=== PATIENT | female | born 1995 | race Caucasian/White ===

== ENCOUNTER 2017-06-19 18:41 | Emergency (ER) | payer OTHER ==
[2017-06-19 19:38] LABS: BASOPHIL % 0.2 % (0-2); PLATELET COUNT 185 x10^3mcL (130-400); RED CELL DISTRIBUTION WIDTH 12.6 % (11.5-14.5)
[2017-06-19 19:47] LABS: CALCIUM 9.3 mg/dL (8.5-10.1); CARBON DIOXIDE 32.1 mmol/L (21-32); CHLORIDE SERUM 104 mmol/L (98-107); CREATININE SERUM 0.7 mg/dL (0.6-1.0); GFR1 > 60 mL/min; GLUCOSE SERUM 123 mg/dL (74-106); POTASSIUM SERUM 4.2 mmol/L (3.5-5.1); SODIUM SERUM 141 mmol/L (136-145)
[2017-06-19 19:59] LABS: AMPHETAMINE QUAL UR NONE DETECTED (NEG <=1000)
[2017-06-19 20:02] LABS: ALBUMIN 4.4 g/dL (3.4-5.0); ALKALINE PHOSPHATASE 54 U/L (46-116); ALT/SGPT 17 U/L (14-59); AST/SGOT 17 U/L (15-37); BILIRUBIN TOTAL 1.93 mg/dL (0.20-1.00); T4(THYROXINE) 9.8 ug/dL (4.7-13.3); TOTAL PROTEIN, SERUM 7.9 g/dL (6.4-8.2)
[2017-06-19 20:48] VITALS: BP 103/65
== END 2017-06-19 20:48 | disposition home or self-care (01) ==
LOC: ED 18:41
PROVIDERS: Emergency Medicine
DX: R55 Syncope and collapse (principal); R01.1 Cardiac murmur, unspecified; F41.9 Anxiety disorder, unspecified; K21.9 Gastro-esophageal reflux disease without esophagitis
CPT/HCPCS: 36415; 83880

== ENCOUNTER 2017-09-22 00:03 | Emergency (ER) | payer OTHER ==
[~2017-09-22] VITALS: Ht 167.6 cm; Wt 46.7 kg
[2017-09-22 00:25] VITALS: BP 121/72; Ht 167.6 cm; Wt 46.7 kg
== END 2017-09-22 00:58 | disposition left against medical advice (07) ==
LOC: ED 00:03
DX: Z53.21 Procedure and treatment not carried out due to patient leaving prior to being seen by health care provider (principal)

== ENCOUNTER 2017-10-11 22:34 | Emergency (ER) | payer OTHER ==
[~2017-10-11] VITALS: Ht 162.6 cm; Wt 45.8 kg
[2017-10-11 22:51] VITALS: Ht 162.6 cm; Wt 45.8 kg
[2017-10-12 00:59] VITALS: BP 124/78
== END 2017-10-12 00:59 | disposition home or self-care (01) ==
LOC: ED 22:34
DX: K59.00 Constipation, unspecified (principal)
CPT/HCPCS: Q0092

== ENCOUNTER 2017-12-28 10:32 | Emergency (ER) | payer OTHER ==
[~2017-12-28] VITALS: Ht 162.6 cm; Wt 44.0 kg
[2017-12-28 10:38] VITALS: Ht 162.6 cm; Wt 44.0 kg
[2017-12-28 12:26] VITALS: BP 110/87
== END 2017-12-28 12:20 | disposition home or self-care (01) ==
LOC: ED 10:32
DX: F41.9 Anxiety disorder, unspecified (principal); F32.9 Major depressive disorder, single episode, unspecified

== ENCOUNTER 2018-04-02 22:53 | Emergency (ER) | payer OTHER ==
[2018-04-02 23:04] VITALS: Ht 162.6 cm
[2018-04-03 01:28] LABS: BASOPHIL % 0.3 % (0-2); PLATELET COUNT 195 x10^3mcL (130-400)
[2018-04-03 01:29] LABS: RED CELL DISTRIBUTION WIDTH 21.6 % (11.5-14.5)
[2018-04-03 01:37] LABS: CALCIUM 8.5 mg/dL (8.5-10.1); CARBON DIOXIDE 25.2 mmol/L (21-32); CHLORIDE SERUM 105 mmol/L (98-107); CREATININE SERUM 0.7 mg/dL (0.6-1.0); GFR1 > 60 mL/min; GLUCOSE SERUM 82 mg/dL (74-106); POTASSIUM SERUM 3.6 mmol/L (3.5-5.1); SODIUM SERUM 137 mmol/L (136-145)
[2018-04-03 01:41] LABS: ALKALINE PHOSPHATASE 60 U/L (46-116); AST/SGOT 17 U/L (15-37); LIPASE 305 IU/L (73-393); TOTAL PROTEIN, SERUM 7.2 g/dL (6.4-8.2)
[2018-04-03 01:42] LABS: rbc morphology (normal/abnorm) ABNORMAL (NORMAL)
[2018-04-03 01:58] LABS: ALT/SGPT 14 U/L (14-59)
[2018-04-03 02:27] VITALS: BP 104/65
== END 2018-04-03 02:27 | disposition home or self-care (01) ==
LOC: ED 22:53
PROVIDERS: Emergency Medicine
DX: K58.9 Irritable bowel syndrome, unspecified (principal)
CPT/HCPCS: 36415

== ENCOUNTER 2018-04-28 08:49 | Emergency (ER) | payer OTHER ==
[~2018-04-28] VITALS: Ht 162.6 cm; Wt 45.4 kg
[2018-04-28 08:54] VITALS: Ht 162.6 cm; Wt 45.4 kg
[2018-04-28 10:27] LABS: BASOPHIL % 0.5 % (0-2); CALCIUM 8.9 mg/dL (8.5-10.1); CARBON DIOXIDE 31.6 mmol/L (21-32); CHLORIDE SERUM 103 mmol/L (98-107); CREATININE SERUM 0.6 mg/dL (0.6-1.0); GFR1 > 60 mL/min; GLUCOSE SERUM 86 mg/dL (74-106); PLATELET COUNT 183 x10^3mcL (130-400); POTASSIUM SERUM 3.6 mmol/L (3.5-5.1); SODIUM SERUM 139 mmol/L (136-145)
[2018-04-28 10:32] LABS: ALKALINE PHOSPHATASE 55 U/L (46-116); ALT/SGPT 13 U/L (14-59); AMYLASE 96 U/L (25-115); AST/SGOT 14 U/L (15-37); BILIRUBIN TOTAL 1.2 mg/dL (0.20-1.00); LIPASE 259 IU/L (73-393); TOTAL PROTEIN, SERUM 7.1 g/dL (6.4-8.2)
[2018-04-28 10:36] LABS: RED CELL DISTRIBUTION WIDTH 21.8 % (11.5-14.5)
[2018-04-28 10:55] LABS: rbc morphology (normal/abnorm) ABNORMAL (NORMAL)
[2018-04-28 11:03] VITALS: BP 128/74
== END 2018-04-28 11:03 | disposition home or self-care (01) ==
LOC: ED 08:49
PROVIDERS: Specialist
DX: K59.00 Constipation, unspecified (principal); K21.9 Gastro-esophageal reflux disease without esophagitis
CPT/HCPCS: 36415; J1885

== ENCOUNTER 2018-06-05 16:20 | Emergency (ER) | payer OTHER ==
[~2018-06-05] VITALS: Ht 162.6 cm; Wt 44.9 kg
[2018-06-05 16:42] VITALS: Ht 162.6 cm; Wt 44.9 kg
[2018-06-05 17:29] VITALS: BP 107/56
== END 2018-06-05 17:30 | disposition home or self-care (01) ==
LOC: ED 16:20
DX: K59.00 Constipation, unspecified (principal); F41.9 Anxiety disorder, unspecified; K21.9 Gastro-esophageal reflux disease without esophagitis; F32.9 Major depressive disorder, single episode, unspecified